=== PATIENT | female | born 1995 | race American Indian/Alaskan Native ===

== ENCOUNTER 2021-03-04 02:32 | Emergency (ER) | payer SELFPAY ==
[2021-03-04] MEDS ORDERED: ONDANSETRON 4 MG/2 ML INJ IV ONE (02:39)
[2021-03-04] MEDS ORDERED: SODIUM CHLORIDE 0.9% 1000 ML 1,000 ML IV ONE ×2 (02:39)
--- NOTE | 2021-03-04 04:00 | Emergency Department Report ---
History of Present Illness - General Chief Complaint: Overdose Stated Complaint: OVERDOSE Time Seen by Provider: 03/04/21 02:39 Source: EMS Mode of arrival: Stretcher Limitations: No Limitations - History of Present Illness Initial Comments: Chief complaint: "Why am I here?" HPI: This is a healthy 25-year-old female without significant past medical his tory presents with altered mental status decreased level of consciousness. She is visiting from [place]. Friends called 911 when she became unresponsive. She has been "drinking [alcohol] all day". After taking Percocet tablet, she became unresponsive. She was found by EMS on the floor. Agonal respirations observed. Oxygen saturation 50% on room air. Patient had mild arousal with 1 mg of Narcan. EMS administered a second dose of 1 mg of Narcan which caused patient to become much more alert. Patient was able to tolerate nasal trumpet due to decreased level consciousness. She arrived with nonrebreather in place. MD Complaint: accidental overdose How Overdose Was Discovered: called family/friend Context: Accidental Overdose: wanted to get high, was drinking then took pi Treatments Prior to Arrival: oxygen, narcan - Related Data Allergies Allergy/AdvReac Type Severity Reaction Status Date / Time No Known Allergies Allergy Unverified 03/04/21 02:43 ED Review of Systems ROS: Stated complaint: OVERDOSE Other details as noted in HPI Comment: All other systems reviewed and negative Constitutional: denies: fever, malaise Respiratory: denies: cough, shortness of breath Gastrointestinal: denies: abdominal pain, nausea, vomiting Neurological: denies: headache ED Past Medical Hx - Past Medical History Previous Medical History?: No - Surgical History Past Surgical History?: No - Social History Smoking Status: Never Smoker Substance Use Type: Alcohol, Prescribed ED Physical Exam - General Limitations: No Limitations General appearance: alert, other (Drowsy but able to give full history) - Head Head exam: Present: atraumatic, normocephalic - Eye Eye exam: Present: normal appearance - ENT ENT exam: Present: mucous membranes moist - Neck Neck exam: Present: normal inspection, full ROM - Respiratory Respiratory exam: Present: normal lung sounds bilaterally. Absent: respiratory distress, wheezes, rales, rhonchi - Cardiovascular Cardiovascular Exam: Present: normal rhythm, tachycardia, normal heart sounds. Absent: systolic murmur, diastolic murmur, rubs, gallop - GI/Abdominal GI/Abdominal exam: Present: soft, normal bowel sounds. Absent: distended, tenderness, guarding, rebound - Extremities Exam Extremities exam: Present: normal inspection - Neurological Exam Neurological exam: Present: alert, oriented X3 - Psychiatric Psychiatric exam: Present: flat affect - Skin Skin exam: Present: warm, dry, intact, normal color. Absent: rash ED Course Vital Signs 03/04/21 02:44 Temperature 95.2 F L Pulse Rate 112 H Respiratory 14 Rate Blood Pressure 121/82 O2 Sat by Pulse 99 Oximetry ED Medical Decision Making - Medical Decision Making Acute alcohol and opioid intoxication leading to respiratory failure requiring naloxone and oxygen administration per EMS. Blood alcohol 0.14 During ED course patient monitored with pulse oximetry and cardiac monitoring. Patient received IV fluid therapy. Patient required multiple reassessments in order to detect airway compromise. Patient after 4 hours observation, she did not have airway compromise. She is now awake alert sober. Vital signs are stable. Oxygen 99% on room air. She is lucid insightful. She states that she is from [place] however she recently moved to [place]. She came to [place] to alliance party with friends. She is pleasant with normal demeanor. She denies suicidal homicidal ideation. She does not recall taking a pill of Percocet. She only came to [place] to celebrate with friends. Critical Care Time: Yes Critical care time in (mins) excluding proc time.: 40 Critical care attestation.: If time is entered above; I have spent that time in minutes in the direct care of this critically ill patient, excluding procedure time. 40 minutes of critical care time excluding procedures were used in the care of the patient. After receiving EMS report, nurse receiving team member immediately called respiratory therapist to be present before patient's arrival. I and nurse team members along with respiratory therapist greeted patient in the treatment room. She had nasal trumpet in place and nonrebreather. Her mental status rapidly improved during initial assessment. We prepared for possible intubation prior to arrival. I was concerned for potential airway compromise. Minutes after EMS departed patient was able to give name and date of . She kept asking, "why am I here?" I discussed treatment plan with the nursing team members. I reviewed electronic record. Patient required multiple interventions and reassessments. ED Disposition Clinical Impression: Acute respiratory failure, Acute alcohol intoxication, Opioid intoxication with complication Disposition: DC-01 TO HOME OR SELFCARE Is pt being admited?: No Does the pt Need Aspirin: No Condition: Stable Instructions: Binge-Drinking Information, Adult, Acute Respiratory Failure, Adult, Opioid Use Disorder
[2021-03-04 07:02] VITALS: BP 119/84
== END 2021-03-04 07:35 | disposition home or self-care (01) ==
LOC: ED 02:32
DX: J96.00 Acute respiratory failure, unspecified whether with hypoxia or hypercapnia (principal); F10.929 Alcohol use, unspecified with intoxication, unspecified; F11.929 Opioid use, unspecified with intoxication, unspecified
CPT/HCPCS: 36415; 96361; 96374; 99291; J2405; J7030; 80320; G0480